=== PATIENT | female | born 1985 | race American Indian/Alaskan Native ===

== ENCOUNTER 2021-12-30 14:06 | Emergency (ER) | payer MEDICARE ==
[2021-12-30] MEDS ORDERED: DICYCLOMINE 20 MG/2 ML INJ IM ONE (16:28)
[2021-12-30] MEDS ORDERED: SODIUM CHLORIDE 0.9% 1000 ML 1,000 ML IV ONE (16:28)
[2021-12-30] MEDS ORDERED: ONDANSETRON 4 MG/2 ML INJ IV ONE ×2 (16:28→20:52)
--- NOTE | 2021-12-30 16:28 | Emergency Department Report ---
ED Abdominal Pain HPI - General Chief Complaint: Abdominal Pain Stated Complaint: ABD PAIN/VOMITING/DIARRHEA Source: patient Mode of arrival: Ambulatory Limitations: No Limitations - History of Present Illness Initial Comments: 36-year-old female presents to the ED complaining of nominal pain with nausea /vomiting/diarrhea started after eating some rice and wolff. Patient states that diarrhea has been for x3 days. Patient states that pain has increased and she has been able unable to sleep. Patient denies taking any [id number]-[id number] medication. Patient is alert and oriented x3. No acute distress noted. MD Complaint: abdominal pain Onset/Timin Location: diffuse Radiation: none Severity scale (0 -10): 7 Quality: sharp Consistency: constant Worsens With: nothing Treatments Prior to Arrival: NSAIDs - Related Data Previous Rx's Medication Instructions Recorded Last Taken Type Acetaminophen/Codeine [Tylenol 1 tab PO Q6H PRN 3 Days #12 tab 12/30/21 Unknown Rx /Codeine # 3 tab] Dicyclomine [Bentyl] 20 mg PO QID 5 Days #20 tablet 12/30/21 Unknown Rx Ondansetron (Nf) [Zofran TAB] 8 mg PO Q8HR PRN 5 Days #12 tablet 12/30/21 Unknown Rx levoFLOXacin [Levaquin] 750 mg PO QDAY 7 Days #7 tablet 12/30/21 Unknown Rx Allergies Allergy/AdvReac Type Severity Reaction Status Date / Time No Known Allergies Allergy Verified 12/30/21 14:22 ED Review of Systems ROS: Stated complaint: ABD PAIN/VOMITING/DIARRHEA Other details as noted in HPI Constitutional: denies: chills, fever Eyes: denies: eye pain, eye discharge, vision change ENT: denies: ear pain, throat pain Respiratory: denies: cough, shortness of breath, wheezing Cardiovascular: denies: chest pain, palpitations Endocrine: no symptoms reported Gastrointestinal: abdominal pain, nausea, vomiting, diarrhea Genitourinary: denies: urgency, dysuria, discharge Musculoskeletal: denies: back pain, joint swelling, arthralgia Skin: denies: rash, lesions Neurological: denies: headache, weakness, paresthesias Psychiatric: denies: anxiety, depression Hematological/Lymphatic: denies: easy bleeding, easy bruising ED Past Medical Hx - Past Medical History Previous Medical History?: No - Surgical History Past Surgical History?: No - Medications Home Medications: Home Medications Medication Instructions Recorded Confirmed Last Taken Type Acetaminophen/Codeine [Tylenol 1 tab PO Q6H PRN 3 Days #12 tab 12/30/21 Unknown Rx /Codeine # 3 tab] Dicyclomine [Bentyl] 20 mg PO QID 5 Days #20 tablet 12/30/21 Unknown Rx Ondansetron (Nf) [Zofran TAB] 8 mg PO Q8HR PRN 5 Days #12 tablet 12/30/21 Unknown Rx levoFLOXacin [Levaquin] 750 mg PO QDAY 7 Days #7 tablet 12/30/21 Unknown Rx ED Physical Exam - General Limitations: No Limitations General appearance: alert, in no apparent distress - Head Head exam: Present: atraumatic, normocephalic - Eye Eye exam: Present: normal appearance - ENT ENT exam: Present: mucous membranes moist - Neck Neck exam: Present: normal inspection - Respiratory Respiratory exam: Present: normal lung sounds bilaterally. Absent: respiratory distress - Cardiovascular Cardiovascular Exam: Present: regular rate, normal rhythm. Absent: systolic murmur, diastolic murmur, rubs, gallop - GI/Abdominal GI/Abdominal exam: Present: soft, tenderness, guarding, normal bowel sounds - Extremities Exam Extremities exam: Present: normal inspection - Back Exam Back exam: Present: normal inspection - Neurological Exam Neurological exam: Present: alert, oriented X3 - Psychiatric Psychiatric exam: Present: normal affect, normal mood - Skin Skin exam: Present: warm, dry, intact, normal color. Absent: rash ED Course Vital Signs 12/30/21 12/30/21 12/30/21 14:21 19:41 20:11 Temperature 98.8 F Pulse Rate 114 H Respiratory 20 16 14 Rate Blood Pressure 131/108 Blood Pressure [Left] O2 Sat by Pulse 99 Oximetry 12/30/21 12/30/21 12/30/21 20:57 21:27 21:36 Temperature Pulse Rate 94 H Respiratory 14 14 14 Rate Blood Pressure Blood Pressure 124/81 [Left] O2 Sat by Pulse 99 Oximetry ED Medical Decision Making - Lab Data Result diagrams: 12/30/21 16:46 12/30/21 16:46 - Radiology Data [facility] [address] [place] [address] Cat Scan Report Signed Patient: MC TIRADO MR#: [id number] : 1985 Acct:[id number] Age/Sex: 36 / F ADM Date: 12/30/21 Loc: ED Attending Dr: Ordering Physician: ZUHAIR KUNZ Date of Service: 12/30/21 Procedure(s): CT abdomen pelvis w con Accession Number(s): [id number] cc: ZUHAIR KUNZ CT ABDOMEN AND PELVIS WITH CONTRAST INDICATION / CLINICAL INFORMATION: Unspecified abdominal pain. TECHNIQUE: Axial CT images were obtained through the abdomen and pelvis after 100 cc Omnipaque [address] scans at this location are performed using CT dose reduction for ALARA by means of automated exposure control. COMPARISON: None available. FINDINGS: LOWER CHEST: No significant abnormality. LIVER: No significant abnormality. GALLBLADDER: No significant abnormality. BILE DUCTS: No significant abnormality. PANCREAS: No significant abnormality. SPLEEN: No significant abnormality. ADRENALS: No significant abnormality. RIGHT KIDNEY/URETER: Nonspecific heterogeneity is noted along the right kidney, particularly along the lower pole with mild perinephric fat stranding. No other significant abnormality. LEFT KIDNEY/URETER: No significant abnormality. STOMACH/SMALL BOWEL: No significant abnormality. COLON: No significant abnormality. APPENDIX: No significant abnormality. PERITONEUM: No free fluid. No free air. No fluid collection. LYMPH NODES: No significant adenopathy. VASCULATURE: No significant abnormality. URINARY BLADDER: No significant abnormality. REPRODUCTIVE ORGANS: Prior hysterectomy. No significant adnexal abnormality. ADDITIONAL FINDINGS: None. BONES: No significant abnormality IMPRESSION: 1. Suspected right pyelonephritis. Please correlate with the clinical findings. 2. No other acute findings to explain the patient's abdominal pain. Signer Name: Khoi Parr MD Signed: 12/30/2021 7:47 PM Workstation Name: [id number] Transcribed By: LAUREANO Dictated By: Khoi Parr MD Electronically Authenticated By: Khoi Parr MD Signed Date/Time: 12/30/211946 DD/ 43 TD/TT: - Medical Decision Making 36-year-old female presents to the ED complaining of nominal pain with nausea /vomiting/diarrhea started after eating some rice and wolff. Patient states that diarrhea has been for x3 days. Patient states that pain has increased and she has been able unable to sleep. Patient denies taking any [id number] med ication. Patient is alert and oriented x3. No acute distress noted. Patient also has a dental abscess in which she has a dental appointment scheduled. patient given Dilaudid 1 mg IV, Zofran 4 mg IV, normal saline 1 L states that improved pain to [address] shows suspected pyelonephritis.. Patient WBC is 15.6. Urinalysis showing pertinent finding moderate blood trace of ketones and WBC. Patient given Dilaudid 2 mg IV Zofran 4 mg IV and Rocephin 1 gm for pain 10 out of 10. She states the pain was 0 out of 10 . Patient is ambulatory states she feels better. Discussed plan of care with patient and finding. VS 124/81 Rate 94 at discharge . Rechecked the patient is resting quietly quietly and comfortable and feeling better. I discussed the results of diagnostic study, my clinical impression and the plan for further treatment with the patient. Patient agrees with plan and discharge at this present time. All question addressed. I have given the patient instruction regarding a diagnosis ,expectation ,follow- up and return precaution. I explained to the patient that emergent condition may arise and to return to the ED for new worsen and any new persisting condition. I have explained the importance of following up with the primary care physician or referral physician listed below has instructed. The patient verbalized understanding of discharge instruction. Critical care attestation.: If time is entered above; I have spent that time in minutes in the direct care of this critically ill patient, excluding procedure time. ED Disposition Clinical Impression: Pyelonephritis Disposition: 01 HOME / SELF CARE / HOMELESS Is pt being admited?: No Does the pt Need Aspirin: No Condition: Stable Instructions: Pyelonephritis, Adult, [id number], Abdominal Pain (ED) Additional Instructions: Take medication as prescribed Return to Ed for any worsen Prescriptions: Dicyclomine [Bentyl] 20 mg PO QID 5 Days #20 tablet levoFLOXacin [Levaquin] 750 mg PO QDAY 7 Days #7 tablet Acetaminophen/Codeine [Tylenol /Codeine # 3 tab] 1 tab PO Q6H PRN 3 Days #12 tab PRN Reason: Pain, Moderate (4-6) Ondansetron (Nf) [Zofran TAB] 8 mg PO Q8HR PRN 5 Days #12 tablet PRN Reason: Nausea Referrals: LENKA GREEN MD [Primary Care Provider] - 3-5 Days Forms: Work/School Release Form(ED) Time of Disposition: 21:29
[2021-12-30 18:03] LABS: Basophils # (Auto) 0.1 K/mm3 (0.0-0.1); Basophils % (Auto) 0.4 % (0.0-1.8); Eosinophils % (Auto) 0.1 % (0.0-4.3); Hematocrit 39.8 % (30.3-42.9); Hemoglobin 13.7 gm/dl (10.1-14.3); Lymphocytes # (Auto) 3.4 K/mm3 (1.2-5.4); Lymphocytes % (Auto) 21.4 % (13.4-35.0); Mean Corpuscular HGB Conc 35 % (30-34); Mean Corpuscular Volume 101 fl (79-97); Monocytes # (Auto) 1.2 K/mm3 (0.0-0.8); Monocytes % (Auto) 7.7 % (0.0-7.3); Platelet Count 391 K/mm3 (140-440); Red Blood Count 3.95 M/mm3 (3.65-5.03)
[2021-12-30 18:12] LABS: BUN/Creatinine Ratio 12; Blood Urea Nitrogen 6 mg/dL (7-17); Calcium 9.8 mg/dL (8.4-10.2); Hemolysis Index 6
[2021-12-30 18:16] LABS: Alanine Aminotransferase 15 units/L (7-56); Albumin 4.7 g/dL (3.9-5)
[2021-12-30 18:25] LABS: Bilirubin,Direct < 0.2 mg/dL (0-0.2)
[2021-12-30] MEDS ORDERED: HYDROmorphone 1 MG/1 ML INJ IV ONE (18:53)
--- NOTE | 2021-12-30 19:52 | Cat Scan Report ---
CT ABDOMEN AND PELVIS WITH CONTRAST INDICATION / CLINICAL INFORMATION: Unspecified abdominal pain. TECHNIQUE: Axial CT images were obtained through the abdomen and pelvis after 100 cc Omnipaque [address] scans at this location are performed using CT dose reduction for ALARA by means of automated exposure control. COMPARISON: None available. FINDINGS: LOWER CHEST: No significant abnormality. LIVER: No significant abnormality. GALLBLADDER: No significant abnormality. BILE DUCTS: No significant abnormality. PANCREAS: No significant abnormality. SPLEEN: No significant abnormality. ADRENALS: No significant abnormality. RIGHT KIDNEY/URETER: Nonspecific heterogeneity is noted along the right kidney, particularly along th e lower pole with mild perinephric fat stranding. No other significant abnormality. LEFT KIDNEY/URETER: No significant abnormality. STOMACH/SMALL BOWEL: No significant abnormality. COLON: No significant abnormality. APPENDIX: No significant abnormality. PERITONEUM: No free fluid. No free air. No fluid collection. LYMPH NODES: No significant adenopathy. VASCULATURE: No significant abnormality. URINARY BLADDER: No significant abnormality. REPRODUCTIVE ORGANS: Prior hysterectomy. No significant adnexal abnormality. ADDITIONAL FINDINGS: None. BONES: No significant abnormality IMPRESSION: 1. Suspected right pyelonephritis. Please correlate with the clinical findings. 2. No other acute findings to explain the patient's abdominal pain. Signer Name: Khoi Parr MD Signed: 12/30/2021 7:47 PM Workstation Name: [id number]
[2021-12-30 20:14] LABS: Bacteria,Urine 4+ /HPF (Negative); Bilirubin,Urine NEG (Negative); Blood,Urine MOD (Negative); Color,Urine Yellow (Yellow); Mucus,Urine 1+ /HPF; Urobilinogen,Urine < 2.0 mg/dL (<2.0)
[2021-12-30 20:15] LABS: HCG Qualitative,Urine Negative (Negative)
[2021-12-30] MEDS ORDERED: HYDROmorphone 2 MG/1 ML INJ IV ONE (20:51)
[2021-12-30 21:37] VITALS: BP 124/81
--- NOTE | 2021-12-31 09:29 | Electrocardiograph Report ---
[facility] Test Date: 2021-12-30 Test Time: 17:32:18 Pat Name: MC TIRADO Department: Room: Gender: F [employer]: ESTEFANIA : 1985 Requested By: APRIL ASIF Order Number: [id number] Reading MD: Earl Mcdaniel Measurements Intervals [place] Rate: 89 P: 62 SC: 147 QRS: 10 QRSD: 77 T: 22 QT: 376 QTc: 459 Interpretive Statements Sinus rhythm No previous ECG available for comparison Electronically Signed On 12-31-2021 9:29:15 EST by Earl Mcdaniel
== END 2021-12-30 21:41 | disposition home or self-care (01) ==
LOC: ED 14:06
DX: N12 Tubulo-interstitial nephritis, not specified as acute or chronic (principal); Z79.899 Other long term (current) drug therapy
CPT/HCPCS: 36415; 74177; 80048; 80076; 81001; 81025; 82150; 85025; 93005; 93010; 96361; 96372; 96374; 96375; 96376; 99284; J0500; J1170; J2405; J7030; Q9967; Q0162